=== PATIENT | male | born 2000 | race Caucasian/White ===

== ENCOUNTER 2021-08-19 10:37 | Emergency (ER) | payer OTHER, SELFPAY ==
[2021-08-19 10:46] VITALS: BP 121/65; PULSE 88; RESP 16; TEMP 36.9; O2SAT 99
--- NOTE | 2021-08-19 11:41 | ED.GENADULT ---
HPI - General Adult General Chief complaint: Skin/Abscess/Foreign Body Stated complaint: Rash Source: patient Mode of arrival: ambulatory Limitations: no limitations History of Present Illness HPI narrative: Patient presents for evaluation of pruritic rash to his entire body since yesterday. No new lotions, soaps, detergents, topical products. He did try a new coffee creamer but has not tried any other new foods as of late. He had a similar reaction to azithromycin in the past. He does work outdoors [place] [employer] but does not believe he has been exposed to poison [place]e/[place]. No difficulty breathing or swallowing. He tried taking benadryl last night. He is unsure whether it was effective. Rash is present on palmar aspect of his hands, however he has not been sexually active recently. Denies presence of rash on plantar aspect of his feet. Related Data Allergies Allergy/AdvReac Type Severity Reaction Status Date / Time azithromycin Allergy Unknown Rash Verified 08/19/21 10:45 Review of Systems Review of Systems: CONSTITUTIONAL: Denies fever, chills, or sweats. EYES: Denies visual changes, redness, or discharge. ENT: Denies rhinorrhea, congestion, sore throat, or otalgia. CARDIOVASCULAR: Denies chest pain, palpitations, or edema. RESPIRATORY: Denies cough or dyspnea. GASTROINTESTINAL: Denies abdominal pain, nausea, vomiting, or diarrhea. GENITOURINARY: Denies dysuria or hematuria. SKIN: Reports pruritic rash to face, torso and extremities x 4. MUSCULOSKELETAL: Denies back pain, joint pain, or myalgia. NEUROLOGIC: Denies headache, numbness, dizziness, or weakness. PSYCHIATRIC: Denies anxiety or depression. [facility] Past Medical History Medical History No pertinent past medical history Surgical History Surgical History No pertinent past surgical history Family History Family History Mother No pertinent past medical history Social History Social History Smoking status: Never smoker Alcohol intake: never Substance use: never Gender identity (if verbalized by the patient): Male Spiritual care concerns: No Exam Narrative: GENERAL: Well-appearing, well-nourished, and in no acute distress. HEAD: Normocephalic, atraumatic. EYES: PERRLA and EOMI. ENT: Nares clear, no rhinorrhea or epistaxis. Mucous membranes moist. Oropharynx without tonsillar hypertrophy exudate or other lesions. No posterior pharyngeal swelling. Bilateral TMs pearly bennett nonbulging NECK: Supple. No adenopathy or masses. No carotid bruits or JVD CHEST: Clear to auscultation. No respiratory distress. No wheezes rales or rhonchi HEART: Regular rate and rhythm. No murmur heard. Normal peripheral pulses. ABDOMEN: Soft, nontender, nondistended, normal active bowel sounds. EXTREMITIES: Normal range of motion. No edema. SKIN: There is patchy erythematous rash to face, extremities x4 including palmar aspects of the hands without involvement of the plantar aspects of the feet. The majority of these are either flat or slightly raised. Several are macular but there are wheals present. NEURO: No focal deficits. Alert and oriented x3. PSYCH: Normal mood and affect. Course Course Emergency Course: This is a 21-year-old male who presented with complaints of a rash to his entire body. This appears to be some type of allergic reaction. He did have involvement of palmar aspect of his hands but without presence of rash on plantar aspect of feet. Doubt syphilis as he has not been sexually active. It may be helpful for him to have RPR checked if treatment has suboptimal results. He was given solumedrol and benadryl while here. Will dc on several week taper of prednisone, and will also give scripts for Vistaril and Pepcid. H
[2021-08-19] MEDS: diphenhydrAMINE HCl CAP 25 MG CAPSULE 50 MG PO (11:55)
[2021-08-19] MEDS: methylPREDNISolone SOD SUCC 125 MG VIAL IM (11:57)
[2021-08-19 12:23] VITALS: BP 135/80; PULSE 75; RESP 20; O2SAT 100
--- NOTE | 2021-08-19 14:14 | PC.NURSE ---
1200 mother called RN to room-patient states he feels dizzy, lightheaded and is lying supine at this time; skin color pink, diffuse rash still noted and unchanged at this time. BP 120/80 p80 with SpO2 98%. Provider called to room.
--- NOTE | 2021-08-19 14:17 | PC.NURSE ---
1210 patient has generalized shaking at this time. Provider notified. Patient states he feels cold.
--- NOTE | 2021-08-19 14:18 | PC.NURSE ---
1215 Provider states to call EMS for transfer to the ED for further evaluation -patient and family in agreement.
--- NOTE | 2021-08-19 14:19 | PC.NURSE ---
1223 Patient transferred via ambulance to [facility], patient continues to shake but less than previously. Also rash redness appears to be fading.
== END 2021-08-19 12:23 | disposition short-term general hospital (02) ==
PROVIDERS: Emergency Provider Nurse Practitioner; PCP Emergency Medicine
DX: R21 Rash and other nonspecific skin eruption (principal); T78.40XA Allergy, unspecified, initial encounter; R55 Syncope and collapse; R42 Dizziness and giddiness; R25.1 Tremor, unspecified
CPT/HCPCS: 96372; 99215; A9270; G0463; J2930

== ENCOUNTER 2021-08-19 12:46 | Emergency (ER) | payer OTHER, SELFPAY ==
[2021-08-19 12:47] VITALS: PULSE 92; RESP 18
[2021-08-19 13:01] VITALS: BP 120/65; PULSE 79; RESP 14; O2SAT 96
--- NOTE | 2021-08-19 13:06 | ED.ALLEREA ---
HPI - Allergic Reaction General Chief complaint: Allergic Reaction Stated complaint: rash Source: patient History of Present Illness HPI narrative: Patient presents with a rash that started yesterday was initially just on his arms that spread across his entire body he went to an urgent care was given Benadryl and Solu-Medrol after Solu-Medrol he had a syncopal event after standing up. Urgent care was concerned so sent to the ER for evaluation. Denies any difficulty swallowing denies any wheezing denies any shortness of breath has had no prior history of anaphylaxis. Does report a history of azithromycin which caused a similar rash to today's symptoms. He did have an organic creamer but is unable to any other changes to his daily routine. His rash was initially itchy but that has subsided after Benadryl Related Data Allergies Allergy/AdvReac Type Severity Reaction Status Date / Time azithromycin Allergy Unknown Rash Verified 08/19/21 10:45 Review of Systems Review of Systems: CONSTITUTIONAL: Denies fever, chills, or sweats. EYES: Denies visual changes, redness, or discharge. ENT: Denies rhinorrhea, congestion, sore throat, or otalgia. CARDIOVASCULAR: Denies chest pain, palpitations, or edema. RESPIRATORY: Denies cough or dyspnea. GASTROINTESTINAL: Denies abdominal pain, nausea, vomiting, or diarrhea. GENITOURINARY: Denies dysuria or hematuria. SKIN: Diffuse rash and itching MUSCULOSKELETAL: Denies back pain, joint pain, or myalgia. NEUROLOGIC: Denies headache, numbness, dizziness, or weakness. PSYCHIATRIC: Denies anxiety or depression. All systems reviewed & are unremarkable except as noted in HPI and below PMFSH Past Medical History Medical History (Updated 08/19/21 @ 14:04 by Bill Hand MD) No pertinent past medical history Surgical History Surgical History No pertinent past surgical history Family History Family History Mother No pertinent past medical history Social History Social History Smoking status: Never smoker Alcohol intake: never Substance use: never Gender identity (if verbalized by the patient): Male Spiritual care concerns: No Exam Narrative: GENERAL: Well-appearing, well-nourished, and in no acute distress. HEAD: Normocephalic, atraumatic. EYES: PERRLA and EOMI. no conjunctival injection ENT: Nares clear, no rhinorrhea or epistaxis. Mucous membranes moist. No erythema in the oropharynx no edema in the posterior pharynx NECK: Supple. No masses. No JVD CHEST: Clear to auscultation. No respiratory distress. No wheezes rales or rhonchi HEART: Regular rate and rhythm. No murmur heard. Normal peripheral pulses. ABDOMEN: Soft, nontender, nondistended, normal active bowel sounds. EXTREMITIES: Normal range of motion. No edema. SKIN: Diffuse erythematous raised rash that is blanching and is on the torso extremities and face NEURO: No focal deficits. Alert and oriented x3. PSYCH: Normal mood and affect. Course Reevaluation(s) Reevaluation #1: Patient reports feeling much improved anxious to go home feels he can monitor his symptoms at home. Date: 08/19/21 Time: 14:02 Vital Signs Vital signs: Vital Signs Pulse Rate 92 08/19/21 12:47 Respiratory Rate 18 08/19/21 12:47 Pulse Rate 84 08/19/21 13:16 Respiratory Rate 13 08/19/21 13:16 Blood Pressure 114/90 08/19/21 13:16 Pulse Oximetry 96 08/19/21 13:16 MDM - Allergic Reaction MDM Narrative Medical decision making narrative: H&P as above, vss, pt looks clinically well, exam with diffuse rash, labs/img considered, symptomatic relief available as needed, on reevaluation pt continues to looks clinically well. Suspect allergic reaction appears to be limited to the skin, dns airway compromise anaphylaxis SJS, TEN. plan to tx/monitor
[2021-08-19 13:16] VITALS: BP 114/90; PULSE 84; RESP 13; O2SAT 96
== END 2021-08-19 14:13 | disposition home or self-care (01) ==
PROVIDERS: Emergency Provider Emergency Medicine; PCP Emergency Medicine
DX: T78.40XA Allergy, unspecified, initial encounter (principal)
CPT/HCPCS: 96372; 99283; A9270; J2930